=== PATIENT | male | born 1970 | race African-American/Black ===

== ENCOUNTER 2017-11-20 15:52 | Inpatient (IN) | payer OTHER ==
[~2017-11-20] VITALS: Ht 185.4 cm; Wt 197.3 kg
--- NOTE | ~2017-11-20 | EKG ---
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
--- NOTE | ~2017-11-20 | EKG ---
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 : 1970 Requested By: Jamil Dubon Order Number: [id number] MD: Jamil Dubon Measurements Intervals [place] Rate: 110 P: 25 NE: 186 QRS: 1 QRSD: 80 T: 14 QT: 333 QTc: 451 Interpretive Statements Sinus tachycardia Abnormal R-wave progression, late transition No significant ST or T changes Compared to ECG 11/20/2017 15:53:15 ST (T wave) deviation now present Electronically Signed On 11-21-2017 13:16:27 CDT by Jamil Dubon [email or web address] <ELECTRONICALLY SIGNED> By: Jamil Dubon MD 11/21/17 1316 1048 1048 Jamil Dubon MD /EPI
--- NOTE | ~2017-11-20 | HC ---
[facility] [place] [address] CONSULTATION Name: KE COLE Room #: 206-P ADM IN M.R.#: [id number] Admission: 11/20/17 Attend Phys: Darren Oropeza MD Discharge: Date of : 68 Report #: [id number] THIS REPORT FOR: //name// CC: KAYLEY Oropeza Physician staff REASON FOR CONSULTATION: Unstable angina. HISTORY OF PRESENT ILLNESS: The patient is a 47-year-old male with a history of coronary artery disease, who had a prior angioplasty without stent placement back in 2008. He had severe chest pain at that time. About a year later, he had a repeat episode of chest pain, underwent a repeat catheterization and it sounds like no intervention was performed at that time, but he did have problems with a groin bleed complication. The patient has done well until yesterday he was driving back from out of town and around which time when he started having episode of chest pain with associated radiation to the neck and jaw with associated shortness of breath and diaphoresis, with associated palpitations. He also has history of atrial fibrillation and thinks he may have been having some AFib at the time. He did take a couple doses of sublingual nitroglycerin and then his pain subsided. He is currently chest pain free. REVIEW OF SYSTEMS: Twelve-point review of systems was performed and it was negative other than what I mentioned above. PAST MEDICAL HISTORY: 1. CAD. 2. AFib. 3. DVT. SOCIAL HISTORY: He does not smoke. FAMILY HISTORY: Noncontributory. ALLERGIES: Include IODINE, PENICILLIN. MEDICATIONS: Have been reviewed. PHYSICAL EXAMINATION: VITAL SIGNS: Temperature is 36.6, pulse 90, respiration 16, blood pressure 163/87, sats are 95%. GENERAL: He is in no acute distress. HEENT: Oropharynx is clear. NECK: Supple, no thyromegaly. HEART: Regular rate and rhythm. LUNGS: Clear to auscultation bilaterally. ABDOMEN: Soft, nontender, nondistended with no hepatosplenomegaly. [facility] [address] [place] [address] CONSULTATION Name: KE COLE Room #: 206-[facility] IN [facility]#: [id number] Admission: 11/20/17 Attend Phys: Darren Oropeza MD Discharge: Date of : 68 Report #: [id number] EXTREMITIES: No clubbing, cyanosis, edema. NEUROLOGIC: Cranial nerves 2-12 are intact. IMAGING: A 12-lead EKG shows normal sinus rhythm with no ischemia. Telemetry shows no arrhythmia. LABORATORY DATA: White count 12.6, hemoglobin 11.8, platelets 256. Chemistries: Sodium 134, potassium 6.5, chloride 101, bicarbonate 22, BUN 35, creatinine 1.6, glucose 403. ASSESSMENT: 1. Possible unstable angina. 2. Coronary artery disease. 3. Atrial fibrillation. 4. Prior deep venous thrombosis. SUMMARY: The patient is a 47-year-old with history of coronary artery disease, presenting with chest pain. Cardiac CT scan showed no evidence of PE. I am concerned that he may have advanced disease. Given his morbid obesity, I think a nuclear scan will be of limited value. I recommend that we proceed directly with cardiac catheterization via radial approach. We will keep the patient n.p.o. after midnight and proceed accordingly. By: 0941 1049 Jamil Dubon MD /nt
--- NOTE | ~2017-11-20 | EKG ---
[address] [address] ELECTROCARDIOGRAM REPORT Name: DOUGLASKE Room #: 206-[facility] IN .R.#: [id number] Admission: 11/20/17 Attend Phys: Darren Oropeza MD Discharge: Date of : 68 Report #: [id number] THIS REPORT FOR: //name// 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
--- NOTE | ~2017-11-20 | CATHLAB ---
[facility] [address] [place] [address] INVASIVE PROCEDURE REPORT Name: KE COLE Room #: 206-P [facility] IN [facility]#: [id number] Admission: 11/20/17 Attend Phys: Darren Oropeza MD Discharge: Date of : 68 Date of Service: 11/22/17 1211 Report #: [id number] THIS REPORT FOR: //name// APPROVED REPORT Study performed: 11/22/2017 08:08:39 Patient Details Patient Status: In-Patient Room #: The patient is a 47 year-old male Event Personnel Heladio Yap Whipped Topping Supervisor, Scot Elizondo RN, Mario Pineda RN RN, Isiah Jacques Monitor, Bridget Carey RTR, CARGO ROUTER Scrub Procedures Performed Left Heart Cath w/or w/o Coronaries [id number] [facility] Indication Chest pain Risk Factors Obesity, HypercholesterolemiaPhysical Activity, Hypertension, Diabetes Procedure Narrative The Left Wrist^ was infiltrated with 1% Lidocaine subcutaneous anesthesia. A TRANSRADIAL SLENDER 6F GLIDESHEATH KIT #[id number] sheath was inserted into the Left Radial Artery^. Coronary angiography was performed using coronary diagnostic catheters. The right coronary system was accessed and visualized with a 6FR JR 4 #[id number] catheter. The left coronary system was accessed and visualized with a 5FR JL 3.5 #[id number] catheter. Left ventricular/Aortic Valve gradient assessed via catheter pullback. Closure device was deployed with a Fr VASC BAND XL 29CM #[id number]. There was no hematoma. Intraoperative Conscious Sedation Sedation start time: 8.46 Case end Time: 9.15 Fentanyl 50 mcg Versed 2 mg Fluoro Time: 8.52 minutes Dose: DAP 60964 cGycm2 2057 mGy Contrast Type and Amount: Visipaque 125 ml [facility] [place] [address] INVASIVE PROCEDURE REPORT Name: KE COLE Room #: 206-P [facility] IN ..#: [id number] Admission: 11/20/17 Attend Phys: Darren Oropeza MD Discharge: Date of : 68 Date of Service: 11/22/17 1211 Report #: [id number] Coronary Angiography The patient's coronary anatomy is co- dominant. Diagnostic Cath Left Main Large-caliber vessel, patent with no flow-limiting lesions. LAD Moderate to large caliber vessel, traveling down the anterior wall and wrapping around the apex. There are no flow-limiting lesions in the LAD. Diagonal 1 Moderate size caliber vessel, with no flow-limiting lesions. Diagonal 2 Moderate size caliber vessel, with no flow-limiting lesions. Circumflex Codominant vessel, supplies 2 moderate size OM vessels. Patent vessel with no flow-limiting lesions. OM1 Patent vessel, with no flow-limiting lesions. OM2 Patent vessel, with no flow-limiting lesions. Right Coronary Moderate size caliber vessel, with no flow-limiting lesions. R PDA Small size caliber vessel, may have mild diffuse disease. Left Ventriculography Left Ventriculography was not performed. An LVEDP was measured and there is no gradient across the outflow tract. Hemodynamics The aortic pressure is 136/100 mmHg with a mean of 89 mmHg. The left ventricular pressure is 139/28 mmHg with a mean of mmHg. The left ventricular end diastolic pressure is 28 mmHg. Conclusion 1. Angiographically normal LAD and codominant left circumflex arteries. 2. Possible mild diffuse disease in a small PDA vessel. 3. Recommend medical therapy. <ELECTRONICALLY SIGNED> By: Heladio Yap MD 11/22/17 121 10 10 Heladio Yap MD /INF
[~2017-11-20 15:52] MED LIST: HYDRALAZINE 2525 MG PO; LOPRESSOR100 M1 PO; NORCO 5-325 TA1 EACH PO; PRINIVIL20 MG PO; ROBAXIN 750 MG750 M1 PO; TOPROL XL100 MG PO; ZESTRIL10 MG PO
[2017-11-20 16:00] VITALS: BP 163/96
[2017-11-20] MEDS ORDERED: GLUCOPHAGE XR500 MG PO (16:47)
[2017-11-20] MEDS ORDERED: TOPROL XL100 MG PO (16:47)
[2017-11-20] MEDS ORDERED: HYDRALAZINE 2525 MG PO (16:48)
[2017-11-20 17:14] LABS: ABSOLUTE NEUTROPHILS 6.4 thou/uL (1.4-8.2); BASOPHILS 1.1 % (0.0-2.0); EOSINOPHILS 2.7 % (0.0-3.0); HEMATOCRIT 34.6 % (42.0-52.0); HEMOGLOBIN 11.4 gm/dL (14.0-18.0); LYMPHOCYTES 18.6 % (24.0-44.0); MCH 28.3 pg (26.0-34.0); MCHC 32.8 g/dL (28.0-37.0); MCV 86.3 fL (80.0-100.0); MONOCYTES 7.3 % (1.0-8.0); PLATELET COUNT 252 thou/uL (150-400); POLYS 70.3 % (36.0-66.0); RBC 4.01 mil/uL (4.50-6.00); RDW 16.4 % (10.5-14.5); WBC 9.1 thou/uL (4.0-11.0)
[2017-11-20 17:23] LABS: ANION GAP 8 mmol/L (7-16); BUN 26 mg/dL (7-18); CALCIUM 9.4 mg/dL (8.5-10.1); CHLORIDE 103 mmol/L (98-107); CO2 22 mmol/L (21-32); CREATININE 1.4 mg/dL (0.7-1.3); GLUCOSE 331 mg/dL (74-106); POTASSIUM 5.1 mmol/L (3.5-5.1); SODIUM 133 mmol/L (136-145)
[2017-11-20 17:32] LABS: TROPONIN-I < 0.04 ng/mL (<0.06)
[2017-11-20 18:48] VITALS: BP 111/73
[2017-11-20 20:29] VITALS: BP 120/75
[2017-11-20 21:07] VITALS: BP 157/96
[2017-11-20 23:13] VITALS: BP 142/81
[2017-11-21 04:12] VITALS: BP 134/100
[2017-11-21 06:57] LABS: HEMATOCRIT 36.7 % (42.0-52.0); HEMOGLOBIN 11.8 gm/dL (14.0-18.0); MCH 27.8 pg (26.0-34.0); MCHC 32.1 g/dL (28.0-37.0); MCV 86.7 fL (80.0-100.0); RBC 4.23 mil/uL (4.50-6.00); RDW 16.6 % (10.5-14.5); WBC 12.6 thou/uL (4.0-11.0)
[2017-11-21 07:07] LABS: CALCIUM 9.5 mg/dL (8.5-10.1); CREATININE 1.6 mg/dL (0.7-1.3)
[2017-11-21 07:10] LABS: POTASSIUM 6.5 mmol/L (3.5-5.1)
[2017-11-21 07:13] LABS: CHOLESTEROL 162 mg/dL (<200); HDL CHOLESTEROL 40 mg/dL (>40); LDL CHOLESTEROL 94 mg/dL (<100); TC:HDL 4.1 Ratio (Not establshd); TRIGLYCERIDE 144 mg/dL (<150); VLDL 29 mg/dL (<40)
[2017-11-21 08:06] VITALS: BP 163/87
[2017-11-21 10:38] VITALS: BP 118/64
[2017-11-21 13:01] VITALS: BP 127/84
[2017-11-21 14:07] LABS: GLYCOHEMOGLOBIN (HGB A1C) 8.1 % (4.8-5.6)
[2017-11-21 16:37] VITALS: BP 126/85
[2017-11-21 21:04] VITALS: BP 148/84
[2017-11-22 00:02] VITALS: BP 144/99
[2017-11-22 12:00] VITALS: BP 130/69
[2017-11-22] MEDS ORDERED: METOPROLOL SUCC50 MG PO (12:42)
[2017-11-22] MEDS ORDERED: PRINIVIL20 MG PO (12:42)
[2017-11-22] MEDS ORDERED: IMDUR 60 MG TAB60 M1 PO (12:42)
[2017-11-22] MEDS ORDERED: GLUCOPHAGE XR500 MG PO (12:42)
[2017-11-22 13:40] VITALS: BP 130/69
[2017-11-22 15:42] VITALS: BP 130/69
== END 2017-11-22 14:45 | disposition home or self-care (01) | DRG 287 ==
LOC: ER 15:52 → EROBS 17:49 → 2N 17:49 → ENTRNSPT 11-22 14:37 → EDTRNSPTSTS 11-22 14:41 → 2N 11-22 14:45
PROVIDERS: Emergency Medicine; Hospitalist; Nurse Practitioner
PROC: 05HB33Z Insertion of Infusion Device into Right Basilic Vein, Percutaneous Approach (ICD-10-PCS; principal; 2017-11-20)
PROC: B2111ZZ Fluoroscopy of Multiple Coronary Arteries using Low Osmolar Contrast (ICD-10-PCS; 2017-11-22)
PROC: 4A023N7 Measurement of Cardiac Sampling and Pressure, Left Heart, Percutaneous Approach (ICD-10-PCS; 2017-11-22)
PROC: B2151ZZ Fluoroscopy of Left Heart using Low Osmolar Contrast (ICD-10-PCS; 2017-11-22)
DX: R07.89 Other chest pain (principal); Z68.43 Body mass index [BMI] 50.0-59.9, adult; N17.9 Acute kidney failure, unspecified; I10 Essential (primary) hypertension; I48.91 Unspecified atrial fibrillation; E78.5 Hyperlipidemia, unspecified; E66.01 Morbid (severe) obesity due to excess calories; E86.0 Dehydration; K21.9 Gastro-esophageal reflux disease without esophagitis; E11.65 Type 2 diabetes mellitus with hyperglycemia; I95.9 Hypotension, unspecified; I25.10 Atherosclerotic heart disease of native coronary artery without angina pectoris; Z98.61 Coronary angioplasty status; I25.2 Old myocardial infarction; Z86.718 Personal history of other venous thrombosis and embolism; Z79.84 Long term (current) use of oral hypoglycemic drugs; Z79.899 Other long term (current) drug therapy; Z88.0 Allergy status to penicillin; Z91.041 Radiographic dye allergy status
CPT/HCPCS: 10081; 27001